=== PATIENT | female | born 1990 ===

== ENCOUNTER 2018-10-28 18:00 | Inpatient (IN) | payer BC ==
--- NOTE | 2018-10-28 11:22 | PDOC.LDHP ---
Labor and Delivery H&P Chief complaint: scheduled induction HPI: 27 yo @ 39w3d by 11 week CRL who presents for IOL due to A1DM well controlled with ADA diet. Pt has also been followed with serial sonos due to concern for possible constitutionally small , most recent OSMANY 18% at 36 weeks (2580g). Current gestational age (weeks): 39 Due date: 11/01/18 Dating criteria: first trimester ultrasound Grav: 1 Para: 0 Current complications: gestational diabetes Abnormal US findings: No Past Medical History: Denies Current medications: pre- vitamins Previous surgical history: none Allergies/Adverse Reactions: Allergies Allergy/AdvReac Type Severity Reaction Status Date / Time gelatin Allergy Verified 10/28/18 21:05 Social history: none - Physical Exam Vital signs reviewed and normal: yes General: NAD Heart: RRR Lungs: nonlabored breathing Abdomen: gravid Extremeties: no edema FHT: category 1 [place] contractions every: q2-4 min - Vaginal Exam cm dilated: 3 (AROM- meconium stained ) Effacement: 75% Station: -1 - OB Labs Blood type: O RH: positive Antibody Screen: negative HIV: negative RPR: negative HEPSAg: negative 1 hour GCT: positive 3 hour GTT: positive GBS: negative Urine drug screen: negative Rubella: immune - Assessment 39w3d IUP A1DM IOL - Plan Plan: admit to L&D, cervical ripening (s/p cytotec, now on pitocin), informed consent obtained, anesthesia consult for pain management
[2018-10-28] MEDS ORDERED: Misoprostol 200 MCG TAB PR PRN (20:50)
[2018-10-28] MEDS ORDERED: Diphenoxylate HCl/Atropine Tablet PO PRN (20:50)
[2018-10-28] MEDS ORDERED: Methylergonovine 0.2 MG/ML VIAL IM PRN (20:50)
[2018-10-28] MEDS ORDERED: HYDROcodone/Acetaminophen 5/325 mg Tablet PO PRN (20:50)
[2018-10-28] MEDS ORDERED: NS / Oxytocin 40 units/1000ml 1,000 ML IV PRN (20:50)
[2018-10-28] MEDS ORDERED: Ondansetron PF 4 MG/2 ML Vial IVP PRN (20:50)
[2018-10-28] MEDS ORDERED: Promethazine HCl 25 MG/ML VIAL IM PRN (20:50)
[2018-10-28] MEDS ORDERED: Butorphanol Tartrate 1 MG/ML VIAL SLOW IVP PRN (20:50)
[2018-10-28] MEDS ORDERED: hydrALAZINE 20 MG/ML VIAL SLOW IVP PRN (20:50)
[2018-10-28] MEDS ORDERED: Lidocaine 1% (PF) 30 ML VIAL SC PRN (20:50)
[2018-10-28] MEDS ORDERED: Carboprost 250 MCG/ML AMP IM PRN (20:50)
[2018-10-28] MEDS ORDERED: Acetaminophen 500 MG TAB PO PRN (20:50)
[2018-10-28] MEDS ORDERED: Ibuprofen 800 MG TAB PO PRN (20:50)
[2018-10-28 21:11] VITALS: BMI 28.4
[2018-10-28] MEDS: Lactated Ringer's 1,000 ML IV SCH (21:41)
[2018-10-28] MEDS: Misoprostol 100 MCG TAB VAG SCH (21:42)
[2018-10-28 21:50] LABS: Hemoglobin 12.8 g/dL (12.0-16.0); Mean Corpuscular HGB CONC 34.6 g/dL (32.0-36.0); Mean Corpuscular Hemoglobin 30.6 pg (27.0-31.0); Mean Corpuscular Volume 88.4 fL (78.0-98.0); Mean Platelet Volume 8.1 fL (7.4-10.4); Platelet Count 209 thou/uL (130-400); RBC Distribution Width 12.7 % (11.5-14.5); Red Blood Cell (RBC) Count 4.19 mill/uL (4.20-5.40); White Blood Cell (WBC) Count 8.7 thou/uL (4.8-10.8)
[2018-10-28 22:28] LABS: Syphilis Antibody Nonreactive (Nonreactive); Syphilis Antibody Index 0.02 S/CO (<1.00 Non-Reactive)
[2018-10-28 22:39] LABS: Glucose 113 mg/dL (70-105)
[2018-10-28 22:49] LABS: HBSAg Index 0.16 S/CO (0-0.99); HIV (1/2) Antibody/Antigen Non-Reactive (NonReactive); HIV 1/2 INDEX 0.08 S/CO (<1.00); Hep B Surf Ag Non-Reactive S/CO (NonReactive)
[2018-10-29] MEDS: Misoprostol 100 MCG TAB VAG SCH ×2 (00:54→05:25)
[2018-10-29] MEDS: Lactated Ringer's 1,000 ML IV SCH (05:26)
[2018-10-29] MEDS ORDERED: NS w/ Oxytocin 10 units 500 ML IV SCH (06:00)
--- NOTE | 2018-10-29 12:26 | PDOC.LDPN ---
Labor & Delivery Progress Note - Subjective Subjective: painful contractions - Objective Vital signs reviewed and normal: yes General: NAD Uterine fundus: non tender Dilation: 6 Effacement: 100% Station: 0 FHT: category 1 [place] contractions every: pt feels ctx q 2 min; not tracing well on toco - Assessment (1) 39 weeks gestation of Code(s): Z3A.39 - 39 WEEKS GESTATION OF Current Visit: Yes Status : Acute (2) Gestational diabetes Code(s): O24.419 - GESTATIONAL DIABETES MELLITUS IN , UNSP CONTROL Current Visit: Yes Status: Acute Plan: continue plan of care, pitocin for augmentation
--- NOTE | 2018-10-29 13:58 | PDOC.OPDEL ---
OB Operative/Delivery Note Delivery Dr/Surgeon: Chika Ramey DO Pre-Delivery Diagnosis: medically indicated induction Procedure/Post Delivery Dx: spontaneous vaginal delivery Weeks gestation: 39 Anesthesia: local - Findings A Sex: male - 1 min: 8 - 5 min: 9 - Additional Findings/Plan Placenta delivered: spontaneous Repaired Obstetrical Laceration: other (Right sulcal, 2nd degree midline, right labial/periuretheral lacerations repaired.) Estimated blood loss: QBL 555 cc due to lacerations Compilations/Other Findings: in cephalic presentation Meconium stained amniotic fluid Normal appearing placenta Post delivery plan: routine recovery
[2018-10-29] MEDS ORDERED: Bisacodyl 10 MG SUPP PR PRN (15:30)
[2018-10-29] MEDS ORDERED: hydrALAZINE 20 MG/ML VIAL SLOW IVP PRN (15:30)
[2018-10-29] MEDS ORDERED: HYDROcodone/Acetaminophen 5/325 mg Tablet PO PRN (15:30)
[2018-10-29] MEDS ORDERED: Milk Of Magnesia 30 ML UDCUP PO PRN (15:30)
[2018-10-29] MEDS ORDERED: Benzocaine-Menthol 82.5 ML CAN TOP PRN (15:30)
[2018-10-29] MEDS ORDERED: NS / Oxytocin 40 units/1000ml 1,000 ML IV SCH (15:30)
[2018-10-29] MEDS: Ferrous Sulfate 325 MG TAB PO SCH (17:40)
[2018-10-29] MEDS: Ibuprofen 800 MG TAB PO SCH (21:59)
[2018-10-29] MEDS: Docusate Calcium (SURFAK) 240 MG CAP PO SCH (22:02)
[2018-10-30] MEDS: Misoprostol 100 MCG TAB VAG SCH ×2 (02:35→02:36)
[2018-10-30] MEDS: Lactated Ringer's 1,000 ML IV SCH (02:36)
[2018-10-30 04:57] LABS: Hemoglobin 10.6 g/dL (12.0-16.0); Mean Corpuscular HGB CONC 32.7 g/dL (32.0-36.0); Mean Corpuscular Hemoglobin 29.6 pg (27.0-31.0); Mean Corpuscular Volume 90.6 fL (78.0-98.0); Mean Platelet Volume 8.1 fL (7.4-10.4); Platelet Count 161 thou/uL (130-400); RBC Distribution Width 12.5 % (11.5-14.5); Red Blood Cell (RBC) Count 3.58 mill/uL (4.20-5.40); White Blood Cell (WBC) Count 13.3 thou/uL (4.8-10.8)
[2018-10-30] MEDS: Ibuprofen 800 MG TAB PO SCH ×3 (06:15→21:28)
--- NOTE | 2018-10-30 07:48 | PDOC.PP ---
Post Progress Note Post Day #: 1 Subjective: No concerns. Lochia and pain minimal-moderate. Breast feeding. PO intake tolerated: yes Flatus: yes Ambulation: yes Vital Signs (12 hours) Temp Pulse Resp BP 10/30/18 04:38 98.3 F 72 18 93/54 L 10/30/18 00:15 97.9 F 75 16 95/55 L Weight Weight 156 lb 8.451 oz - Physical Examination General: NAD Cardiovascular: RRR Respiratory: non-labored breathing Abdominal: no distention, appropriately TTP Fundus firm & at: below umbilicus Extremities: negative homans (B) Neurological: no gross focal deficits Psychiatric: A&Ox3, normal affect Result Diagrams: 10/30/18 04:41 10/28/18 21:35 Additional Labs: Post Labs Blood Type O POSITIVE 10/29/18 01:02 Hep Bs Antigen Non-Reactive S/CO (NonReactive) 10/28/18 21:36 (1) 39 weeks gestation of Code(s): Z3A.39 - 39 WEEKS GESTATION OF Status: Resolved (2) Gestational diabetes Code(s): O24.419 - GESTATIONAL DIABETES MELLITUS IN , UNSP CONTROL Status: Resolved (3) Vaginal delivery Code(s): O80 - ENCOUNTER FOR FULL-TERM UNCOMPLICATED DELIVERY Status: Acute (4) Anemia Code(s): D64.9 - ANEMIA, UNSPECIFIED Status: Acute Qualifiers: Other causes of anemia: acute posthemorrhagic - Assessment/Plan PPD1 VSSAF Anemia expected for EBL Iron supplement. Continue PP care. Plan for d/c tomorrow.
[2018-10-30] MEDS: Ferrous Sulfate 325 MG TAB PO SCH ×2 (08:23→11:37)
[2018-10-30] MEDS: Docusate Calcium (SURFAK) 240 MG CAP PO SCH ×2 (08:23→19:21)
[2018-10-30] MEDS: Prenatal Vitamin 1 TAB PO SCH (08:24)
[2018-10-31] MEDS: Ibuprofen 800 MG TAB PO SCH (05:31)
--- NOTE | 2018-10-31 07:29 | PDOC.PP ---
Post Progress Note Post Day #: 2 Subjective: No concerns. Breast feeding. Minimal pain and lochia. PO intake tolerated: yes Flatus: yes Ambulation: yes Vital Signs (12 hours) Temp Pulse Resp BP Pulse Ox 10/30/18 23:23 98.1 F 67 16 105/63 99 10/30/18 20:05 98.9 F 72 18 105/68 98 Weight Weight 156 lb 8.451 oz - Physical Examination General: NAD Cardiovascular: RRR Respiratory: non-labored breathing Abdominal: no distention, appropriately TTP Fundus firm & at: below umbilicus Extremities: negative homans (B) Neurological: no gross focal deficits Psychiatric: A&Ox3, normal affect Result Diagrams: 10/30/18 04:41 10/28/18 21:35 Additional Labs: Post Labs Blood Type O POSITIVE 10/29/18 01:02 Hep Bs Antigen Non-Reactive S/CO (NonReactive) 10/28/18 21:36 (1) 39 weeks gestation of Code(s): Z3A.39 - 39 WEEKS GESTATION OF Status: Resolved (2) Gestational diabetes Code(s): O24.419 - GESTATIONAL DIABETES MELLITUS IN , UNSP CONTROL Status: Resolved (3) Vaginal delivery Code(s): O80 - ENCOUNTER FOR FULL-TERM UNCOMPLICATED DELIVERY Status: Acute (4) Anemia Code(s): D64.9 - ANEMIA, UNSPECIFIED Status: Acute Qualifiers: Other causes of anemia: acute posthemorrhagic - Assessment/Plan PPD2 VSSAF Doing well. Meeting requirements for d/c.
[2018-10-31 08:30] VITALS: BP 135/70; TEMP 97.8
[2018-10-31] MEDS: Ferrous Sulfate 325 MG TAB PO SCH (08:38)
[2018-10-31] MEDS: Docusate Calcium (SURFAK) 240 MG CAP PO SCH (08:38)
[2018-10-31] MEDS: Prenatal Vitamin 1 TAB PO SCH (08:38)
== END 2018-10-31 14:55 | disposition home or self-care (01) | DRG 806 ==
LOC: L&D 20:42 → 3SW 10-29 17:06
PROVIDERS: ADMIT Obstetrics & Gynecology; ATTEND Obstetrics & Gynecology
PROC: 10E0XZZ Delivery of Products of Conception, External Approach (ICD-10-PCS; principal; 2018-10-30)
PROC: 10907ZC Drainage of Amniotic Fluid, Therapeutic from Products of Conception, Via Natural or Artificial Opening (ICD-10-PCS; 2018-10-30)
PROC: 0KQM0ZZ Repair Perineum Muscle, Open Approach (ICD-10-PCS; 2018-10-30)
PROC: 3E0P7VZ Introduction of Hormone into Female Reproductive, Via Natural or Artificial Opening (ICD-10-PCS; 2018-10-30)
PROC: 3E033VJ Introduction of Other Hormone into Peripheral Vein, Percutaneous Approach (ICD-10-PCS; 2018-10-30)
PROC: 0UQMXZZ Repair Vulva, External Approach (ICD-10-PCS; 2018-10-30)
DX: O24.420 Gestational diabetes mellitus in childbirth, diet controlled (principal); D62 Acute posthemorrhagic anemia; Z37.0 Single live birth; O77.0 Labor and delivery complicated by meconium in amniotic fluid; O71.89 Other specified obstetric trauma; O70.1 Second degree perineal laceration during delivery; O71.82 Other specified trauma to perineum and vulva; O99.02 Anemia complicating childbirth; Z3A.39 39 weeks gestation of pregnancy
CPT/HCPCS: 36415; 82947; 85027; 86780; 86850; 86900; 86901; 87340; 87389; J2001; J2590